=== PATIENT | male | born 1990 | race Caucasian/White ===

== ENCOUNTER 2021-02-12 14:57 | Outpatient (REF) | payer SELFPAY ==
[2021-02-14 12:49] LABS: COVID-19 RT-PCR UVMMC Result Negative (Negative)
== END 2021-02-12 14:58 | disposition home or self-care (01) ==
LOC: NCHCN 14:57
PROVIDERS: Visit Provider Nurse Practitioner Adult Health
DX: Z20.822 Contact with and (suspected) exposure to COVID-19 (principal); R05 Cough; R06.2 Wheezing
CPT/HCPCS: U0003